=== PATIENT | female | born 1975 | race Caucasian/White ===

== ENCOUNTER 2017-02-24 15:26 | Emergency (ER) | payer BC ==
[2017-02-24 15:31] VITALS: BP 141/70; PULSE 120; TEMP 98.6; BMI 24.0
[2017-02-24] MEDS ORDERED: BENZOCAINE 20% 57 GM BOTTLE TP ONE (17:00)
[2017-02-24 17:03] LABS: URINE APPEARANCE CLEAR; URINE BILIRUBIN NEGATIVE (NEGATIVE); URINE BLOOD 1+ (NEGATIVE); URINE COLOR COLORLESS; URINE GLUCOSE (UA) NEGATIVE (NEGATIVE); URINE KETONE NEGATIVE (NEGATIVE); URINE LEUK ESTERASE 1+ (NEGATIVE); URINE NITRITE NEGATIVE (NEGATIVE); URINE PROTEIN NEGATIVE (NEGATIVE); URINE UROBILINOGEN NEGATIVE E.U./dl (0.2-1.0)
[2017-02-24 17:04] LABS: URINE RBC <1 /hpf (0-3); URINE WBC <1 /hpf (3-5)
--- NOTE | 2017-02-24 17:43 | PDOC ---
History of Present Illness - General Chief Complaint: Vaginal Sxs Stated Complaint: VAGINAL PAIN Time Seen by Provider: 02/24/17 16:16 - History of Present Illness Initial Comments: 02/24/17 17:38 CHIEF COMPLAINT: vaginal discomfort HISTORY OF PRESENT ILLNESS: 41 yo female with no PMH [facility] to [facility] with vaginal irritation x 2 days. Patient states she felt itching two days ago and started using VAgisil yesterday with no relief, and today the right side of her vagina "got really swollen." Patient denies any fever, chills , nausea, vomiting, diarrhea, but does complain of discomfort when sitting and urinating. No recent travel or sick contacts. PAST MEDICAL HISTORY: Denies past medical history FAMILY HISTORY: Denies SOCIAL HISTORY:Denies tobacco, alcohol, illicit drug use. SURGICAL HISTORY: tubal ligation 6 years ago ALLERGIES: No known drug allergies REVIEW OF SYSTEMS General/Constitutional: Denies fever or chills. Denies weakness, weight change. HEENT: Denies change in vision. Denies ear pain or discharge. Denies sore throat. Cardiovascular: Denies chest pain or shortness of breath. Respiratory: Denies cough, wheezing, or hemoptysis. Gastrointestinal: Denies nausea, vomiting, diarrhea or constipation. Denies rectal bleeding. Genitourinary: Denies dysuria, frequency, or change in urination. Musculoskeletal: Denies joint or muscle swelling or pain. Denies neck or back pain. Skin and breasts: Swelling to right side of vagina. Denies rash or easy bruising. PHYSICAL EXAM General Appearance: Well-appearing, appropriately dressed. No apparent distress , no intoxication. HEENT: EOMI, PERRLA, normal ENT inspection, normal voice, TMs normal, pharynx normal. No conjunctival pallor. No photophobia, scleral icterus. Neck: Supple. Trachea midline. No tenderness, rigidity, carotid bruit, stridor , lymphadenopathy, or thyromegaly. Respiratory/Chest: Lungs CTAB. No shortness of breath, chest tenderness, respiratory distress, accessory muscle use. No crackles, rales, rhonchi, stridor , wheezing, dullness Cardiovascular: RRR. S1, S2. No JVD, murmur, bradycardia, tachycardia. Vascular Pulses: Dorsalis-Pedis (R): 2+, Dorsalis-Pedis (L): 2+ Gastrointestinal/Abdominal: Normal bowel sounds. Abdomen soft, non-distended. No tenderness or rebound tenderness. No organomegaly, pulsatile mass, guarding , hernia, hepatomegaly, splenomegaly. : 4cm x 3 cm Bartholin's cyst to R labia. Lymphatic: No adenopathy, tenderness. Musculoskeletal/Extremities: Normal inspection. FROM of all extremities, normal capillary refill. Pelvis Stable. No CVA tenderness. No tenderness to extremities, pedal edema, swelling, erythema or deformity. Integumentary: Appropriate color, dry, warm. 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 Fully oriented, alert. Appropriate mood/affect. Motor strength 5/5. No appreciable EOM palsy, facial droop or sensory deficit. 02/24/17 18:10 Past History - Past Medical History Allergies/Adverse Reactions: Allergies Allergy/AdvReac Type Severity Reaction Status Date / Time No Known Allergies Allergy Verified 02/24/17 15:31 Home Medications: Ambulatory Orders Sulfamethoxazole/Trimethoprim [Bactrim Ds -] 1 tab PO BID #14 tablet 02/24/17 Other medical history: NONE - Psycho/Social/Smoking Cessation Hx Anxiety: No Suicidal Ideation: No Smoking History: Never smoked Hx Alcohol Use: No Drug/Substance Use Hx: No Substance Use Type: None *Physical Exam - Vital Signs Last Vital Signs Temp Pulse Resp BP Pulse Ox 98.6 F 120 H 20 141/70 99 02/24/17 15:28 02/24/17 15:28 02/24/17 15:28 02/24/17 15:28 02/24/17 15:28 Procedures - Incision and Drainage I&D Site: Right: Other (Bartholin's cyst to R labia) Betadine cleansed: Yes Anesthesia: 1% Lidocaine Volume(ml): 6 Blade Size: 11 Attempts: 1 Iodinated Packin/4 in (4 cm) Dressing: Yes (dry gauze dressing) Progress: 02/24/17 17:39 4 cm x 3 cm Bartholin's cyst to R labia incised and drained on 1st attempt, approximately 5 cc purulent drainage expressed. Irrigated with high pressure saline, packed with iodoform and covered in dry gauze dressing. No complications. ED Treatment Course - ADDITIONAL ORDERS Additional order review: Laboratory Results 02/24/17 16:51 Urine Color Colorless Urine Appearance Clear Urine pH 6.0 Ur Specific Abie 1.004 Urine Protein Negative Urine Glucose (UA) Negative Urine Ketones Negative Urine Blood 1+ H Urine Nitrite Negative Urine Bilirubin Negative Urine Urobilinogen Negative Ur Leukocyte Esterase 1+ H Urine RBC <1 Urine WBC <1 Ur Epithelial Cells Rare Urine HCG, Qual Negative Medical Decision Making - Medical Decision Making 02/24/17 17:41 41 yo F with no PMH presents to [facility] with Bartholin's cyst to R labia. I&D performed (see procedure note) Advised patient of post procedure instructions and to return in 48 hours for wound check/packing removal. Advised patient of signs and symptoms for return to ER. *DC/Admit/Observation/Transfer Diagnosis at time of Disposition: Bartholin cyst - Discharge Dispostion Disposition: HOME Condition at time of disposition: Stable Admit: No - Prescriptions Prescriptions: Sulfamethoxazole/Trimethoprim [Bactrim Ds -] 1 tab PO BID #14 tablet - Referrals Referrals: Eleuterio Alfaro MD [Staff Physician] - - Patient Instructions Printed Discharge Instructions: DI for Bartholin Gland Cyst Additional Instructions: As discussed, please take medication as prescribed and follow up in 48 hours for wound recheck or packing removal. If the dressing falls out on its own, you must follow up at least within a week with gynecology. If you experience any fever, nausea, vomiting, diarrhea, or any new or worsening symptoms, please return to the ER.
== END 2017-02-24 17:53 | disposition home or self-care (01) ==
LOC: JERFT 15:26
PROC: 0U9LXZZ Drainage of Vestibular Gland, External Approach (ICD-10-PCS; principal; 2017-02-24)
DX: N75.0 Cyst of Bartholin's gland (principal)
CPT/HCPCS: 81003; 81015; 84703; 87086; 99281-25